=== PATIENT | female | born 1985 | race Caucasian/White ===

== ENCOUNTER 2023-07-11 08:53 | Emergency (ER) | payer MEDICAID ==
[~2023-07-11] VITALS: Ht 153 cm; Wt 72.7 kg
[2023-07-11 08:59] VITALS: BP 121/74; PULSE 98; RESP 16; TEMP 99
[2023-07-11 09:50] LABS: COVID AG,FIA SOURCE NASAL SWAB
[2023-07-11 10:08] LABS: SARS-COV2 (COVID) ANTIGEN,FIA Negative (Negative)
[2023-07-11 10:09] LABS: INFLUENZA TYPE A NEGATIVE FOR TYPE A (NEGATIVE); INFLUENZA TYPE B NEGATIVE FOR TYPE B (NEGATIVE)
[2023-07-11] MEDS ORDERED: AMOX500C2 PO (10:42)
[2023-07-11] MEDS ORDERED: IBUP-1492 PO (10:42)
[2023-07-11] MEDS ORDERED: AMOXICILLIN TRIHYDRATE 250 MG CAPSULE PO ONE (10:45)
== END 2023-07-11 11:22 | disposition home or self-care (01) ==
LOC: EMS 08:54
DX: H66.92 Otitis media, unspecified, left ear (principal); Z20.822 Contact with and (suspected) exposure to COVID-19
CPT/HCPCS: 87804; 99283